=== PATIENT | female | born 1945 | race Caucasian/White ===

== ENCOUNTER 2020-08-28 18:20 | Inpatient (IN) ==
[2020-08-28] MEDS ORDERED: DILTIAZEM INJ 100 MG in SODIUM CHLORIDE 0.9% 100 ML IV SCH (20:30)
[2020-08-28] MEDS ORDERED: DOCUSATE SODIUM 100 MG CAPSULE PO PRN (20:45)
[2020-08-28] MEDS ORDERED: ACETAMINOPHEN 325 MG TABLET PO PRN (20:45)
[2020-08-28] MEDS ORDERED: ALBUTEROL 2.5 MG/3 ML NEB RESP TX PRN (20:45)
[2020-08-28] MEDS ORDERED: ONDANSETRON 4 MG/2 ML VIAL IV PRN (20:45)
[2020-08-28] MEDS ORDERED: PANTOPRAZOLE 40 MG VIAL IV SCH (21:00)
[2020-08-28 21:25] LABS: INR 1.1; PT Patient Result 11.7 SECS (9.8-11.9)
[2020-08-28] MEDS ORDERED: HEPARIN DRIP 25,000 UNITS/500 ML PREMIX IV SCH (21:30)
[2020-08-28] MEDS: SODIUM CHLORIDE 0.9% 1,000 ML IV SCH (21:30)
[2020-08-28] MEDS: traZODone 50 MG TABLET PO SCH (22:37)
[2020-08-29] MEDS ORDERED: PHENYLEPHRINE 1 MG/10 ML SYRINGE IV ONE (00:09)
[2020-08-29] MEDS ORDERED: LIDOCAINE 1% 20 ML VIAL ONE (00:28)
[2020-08-29] MEDS ORDERED: HEPARIN/NACL 0.9% 2 UNITS/ML 500 ML IV ONE (00:28)
[2020-08-29] MEDS ORDERED: HEPARIN DRIP 25,000 UNITS/500 ML PREMIX IV SCH ×2 (00:30)
[2020-08-29] MEDS ORDERED: ALTEPLASE 6 MG in SODIUM CHLORIDE 0.9% 120 ML IV SCH (00:30)
[2020-08-29] MEDS ORDERED: SODIUM CHLORIDE 0.9% 1,000 ML IV SCH ×2 (00:30)
[2020-08-29] MEDS ORDERED: LORazepam 2 MG/1 ML VIAL IV PRN (01:15)
[2020-08-29] MEDS ORDERED: MIDAZOLAM 2 MG/2 ML VIAL ONE (02:21)
[2020-08-29] MEDS ORDERED: fentaNYL 100 MCG/2 ML VIAL ONE (02:21)
[2020-08-29 02:29] LABS: INR 1.4; PT Patient Result 14.6 SECS (9.8-11.9); Partial Thromboplastin Time 51.8 SECS (23.9-33.8)
[2020-08-29] MEDS: MORPHINE 4 MG/1 ML VIAL IV PRN ×2 (04:13→07:26)
[2020-08-29] MEDS: SODIUM CHLORIDE 0.9% 1,000 ML IV SCH (05:32)
[2020-08-29 06:42] LABS: Basophils # 0.1 10*3/uL (0.0-0.2); Basophils % 0.8 % (0.0-0.8); Eosinophils % 0.6 % (0.00-10.9); Hematocrit 38.7 VOL% (35.7-47.0); Hemoglobin 13.1 GM/DL (12.0-16.0); Immature Granulocytes % 0.3 %; Immature Granulocytes Absolute 0.02 #; Lymphocytes # 0.7 10*3/uL (1.4-4.0); Lymphocytes % 11.1 % (21.3-54.2); Mean Corpuscular HGB Conc 33.9 GM/DL (32-36); Mean Corpuscular Volume 90.8 FL (87-102); Mean Platelet Volume 10.4 FL (9.6-12.0); Monocytes % 5.4 % (1.7-12.7); Neutrophils % 81.8 % (38.7-73.9); Platelet Count 209 T/CUMM (130-400); Red Blood Count 4.26 MC/CUMM (3.8-5.5); Red Cell Distribution Width 12.9 % (9.3-17.3); White Blood Count 6.3 T/CUMM (4-12)
[2020-08-29 06:55] LABS: INR 1.1; PT Patient Result 11.3 SECS (9.8-11.9); Partial Thromboplastin Time 46.1 SECS (23.9-33.8)
[2020-08-29 07:17] LABS: Calcium 8.6 MG/DL (8.5-10.1); Potassium 3.9 MMOL/L (3.5-5.1)
[2020-08-29 07:28] LABS: Risk Ratio 1.87; Thyroid Stimulating Hormone 1.19 uIU/ml (0.358-3.74); VLDL CHOLESTEROL 10.2 MG/DL
[2020-08-29] MEDS: PANTOPRAZOLE 40 MG TABLET PO SCH (10:22)
[2020-08-29] MEDS: APIXABAN 5 MG TABLET PO SCH ×2 (12:48→20:38)
[2020-08-29 13:42] LABS: Partial Thromboplastin Time 35.1 SECS (23.9-33.8)
[2020-08-29 13:48] LABS: INR 1.1; PT Patient Result 11.6 SECS (9.8-11.9)
[2020-08-29] MEDS: traZODone 50 MG TABLET PO SCH (20:37)
[2020-08-30 01:31] LABS: Basophils % 0.6 % (0.0-0.8); Eosinophils # 0.4 10*3/uL (0.0-0.87); Eosinophils % 6.1 % (0.00-10.9); Hematocrit 36.6 VOL% (35.7-47.0); Hemoglobin 12.2 GM/DL (12.0-16.0); Immature Granulocytes % 0.4 %; Immature Granulocytes Absolute 0.03 #; Lymphocytes # 1.5 10*3/uL (1.4-4.0); Lymphocytes % 21.6 % (21.3-54.2); Mean Corpuscular HGB Conc 33.3 GM/DL (32-36); Mean Corpuscular Volume 91.3 FL (87-102); Mean Platelet Volume 10.3 FL (9.6-12.0); Monocytes % 11.2 % (1.7-12.7); Neutrophils % 60.1 % (38.7-73.9); Platelet Count 189 T/CUMM (130-400); Red Blood Count 4.01 MC/CUMM (3.8-5.5); Red Cell Distribution Width 13.2 % (9.3-17.3); White Blood Count 6.8 T/CUMM (4-12)
[2020-08-30 01:45] LABS: Partial Thromboplastin Time 38.9 SECS (23.9-33.8)
[2020-08-30] MEDS: APIXABAN 5 MG TABLET PO SCH ×2 (08:55→21:13)
[2020-08-30] MEDS: METOPROLOL TARTRATE 25 MG TABLET PO SCH ×2 (08:55→21:13)
[2020-08-30] MEDS: PANTOPRAZOLE 40 MG TABLET PO SCH (08:55)
[2020-08-30] MEDS: traZODone 50 MG TABLET PO SCH (21:13)
[2020-08-31 06:21] LABS: Basophils # 0.1 10*3/uL (0.0-0.2); Basophils % 1.1 % (0.0-0.8); Eosinophils # 0.5 10*3/uL (0.0-0.87); Eosinophils % 6.1 % (0.00-10.9); Hematocrit 37.9 VOL% (35.7-47.0); Hemoglobin 12.4 GM/DL (12.0-16.0); Immature Granulocytes % 0.3 %; Immature Granulocytes Absolute 0.02 #; Lymphocytes # 1.3 10*3/uL (1.4-4.0); Lymphocytes % 17.5 % (21.3-54.2); Mean Corpuscular HGB Conc 32.7 GM/DL (32-36); Mean Corpuscular Volume 92.7 FL (87-102); Mean Platelet Volume 10.7 FL (9.6-12.0); Monocytes % 9.2 % (1.7-12.7); Neutrophils % 65.8 % (38.7-73.9); Platelet Count 242 T/CUMM (130-400); Red Blood Count 4.09 MC/CUMM (3.8-5.5); Red Cell Distribution Width 12.8 % (9.3-17.3); White Blood Count 7.4 T/CUMM (4-12)
[2020-08-31 06:46] LABS: Albumin 2.9 G/DL (3.4-5.0); Bilirubin,Total 0.4 MG/DL (0.2-1.0); Calcium 8.7 MG/DL (8.5-10.1); Potassium 3.7 MMOL/L (3.5-5.1); Total Protein 6.2 G/DL (6.4-8.2)
[2020-08-31 08:13] VITALS: BP 152/80
[2020-08-31] MEDS: PANTOPRAZOLE 40 MG TABLET PO SCH (09:09)
[2020-08-31] MEDS: APIXABAN 5 MG TABLET PO SCH (09:09)
[2020-08-31] MEDS: METOPROLOL TARTRATE 25 MG TABLET PO SCH (09:09)
[2020-08-31] MEDS ORDERED: amLODIPine 5 MG TABLET PO SCH (10:00)
[2020-09-05] MEDS ORDERED: APIXABAN 5 MG TABLET PO SCH (09:00)
== END 2020-08-31 12:58 | disposition home or self-care (01) | DRG 176 ==
LOC: N.ED 18:20 → SUATTDRO 20:24 → N.EDINP 20:24 → N.ICU 21:34 → N.TELES 08-30 13:01
PROVIDERS: ADMIT Family Medicine; ATTEND Internal Medicine Geriatric Medicine